=== PATIENT | male | born 1965 | race African-American/Black ===

== ENCOUNTER 2018-06-07 09:51 | Inpatient (IN) | payer OTHER ==
[2018-06-07 10:28] VITALS: BMI 29.8
--- NOTE | 2018-06-07 11:31 | HP ---
CIWA Score Nausea/Vomitin-No Nausea/No Vomiting Muscle Tremors: None Anxiety: 4-Mod. Anxious/Guarded Agitation: 2 Paroxysmal Sweats: No Perspiration Orientation: 3-Disoriented Date>2 days Tacttile Disturbances: 3-Moderate Itch/Numb/Burn Auditory Disturbances: 0-None Visual Disturbances: 0-None Headache: 0-None Present CIWA-Ar Total Score: 12 - Admission Criteria [facility]AS[facility] Guidelines: Admission for Medically Managed Detox: Requires at least one of the followin. CIWA greater than 12 2. Seizures within the past 24 hours 3. Delirium tremens within the past 24 hours 4. Hallucinations within the past 24 hours 5. Acute intervention needed for co occurring medical disorder 6. Acute intervention needed for co occurring psychiatric disorder 7. Severe withdrawal that cannot be handled at a lower level of care (continued vomiting, continued diarrhea, abnormal vital signs) requiring intravenous medication and/or fluids 8. Admission ROS [facility] Chief Complaint: ETOH WITHDRAWAL SX Allergies/Adverse Reactions: Allergies Allergy/AdvReac Type Severity Reaction Status Date / Time No Known Allergies Allergy Verified 06/07/18 10:54 History of Present Illness: THIS IS PATIENTS FIRST ADMISSION TO DETOX FOR ETOH WITHDRAWAL SX. PATIENT STARTED DRINKING AT AGE 11. PATIENTS DRINKS 1 LITRE OF VODKA DAILY. LAST DRINK WAS EARLY THIS MORNING. PATIENT HAS HX OF BINGE DRINKING. DENIES FALLS, SEIZURES AND BLACKOUTS. PATIENT DENIES USE OF OTHER SUBSTANCES. PATIENT HAS PMH OF DVT ON XARELTO (DX 5 YEARS AGO), TOBACCO USE AND HIV. PATIENT COMPLIANT WITH TRIUMEQ AND HAS OWN MEDICATION. PATIENT DENIES SI/HI AND SUICIDE ATTEMPTS. Exam Limitations: No Limitations - Ebola screening Have you traveled outside of the country in the last 21 days: No Have you had contact with anyone from an Ebola affected area: No Have you been sick,other than usual withdrawal symptoms: No Do you have a fever: No - Review of Systems Constitutional: Weight Stable EENT: reports: No Symptoms Reported Respiratory: reports: No Symptoms reported Cardiac: reports: No Symptoms Reported GI: reports: Poor Fluid Intake : reports: Other (DARK URINE) Integumentary: reports: No Symptoms Reported Neuro: reports: Headache, Numbness, Tingling, Tremors Endocrine: reports: No Symptoms Reported Hematology: reports: No Symptoms Reported Psychiatric: reports: Mood/Affect Appropiate, other (FORGETFUL WITH DATE, ORIENTED TO MONTH AND YEAR.) Patient History - Patient Medical History Hx Anemia: No Hx Asthma: No Hx Chronic Obstructive Pulmonary Disease (COPD): No Hx Cancer: No Hx Cardiac Disorders: No Hx Congestive Heart Failure: No Hx Hypertension: No Hx Hypercholesterolemia: No Hx Pacemaker: No HX Cerebrovascular Accident: No Hx Seizures: No Hx Dementia: No Hx Diabetes: No Hx Gastrointestinal Disorders: No Hx Liver Disease: No Hx Genitourinary Disorders: No Hx Sexually Transmitted Disorders: No Hx Renal Disease (ESRD): No Hx Thyroid Disease: No Hx Human Immunodeficiency Virus (HIV): Yes (COMPLIANT WITH MEDS) Hx Hepatitis C: No Hx Depression: No Hx Suicide Attempt: No Hx Bipolar Disorder: No Hx Schizophrenia: No - Patient Surgical History Past Surgical History: Yes Hx Orthopedic Surgery: Yes (bilateral knee sx) Other Surgical History: bilateral hernia sx Anesthesia Reaction: No - PPD History Previous Implant?: Yes Documented Results: Negative w/o proof Implanted On Prior [facility] Admission?: No PPD to be Administered?: Yes - Smoking Cessation Smoking history: Current every day smoker Have you smoked in the past 12 months: Yes Aproximately how many cigarettes per day: 20 Hx Chewing Tobacco Use: No Initiated information on smoking cessation: Yes 'Breaking Loose' booklet given: 06/07/18 - Substance & Tx. History Hx Alcohol Use: Yes Hx Substance Use: No Substance Use Type: Alcohol Hx Substance Use Treatment: No - Substances Abused Alcohol Route: Oral Frequency: Daily Amount used: 1 liter vodka Age of first use: 12 Date of Last Use: 06/07/18 Family Disease History - Family Disease History Family History: Denies Admission Physical Exam [facility] - Vital Signs Vital Signs: Vital Signs - 24 hr 06/07/18 10:26 Temperature 97.6 F Pulse Rate 80 Respiratory 18 Rate Blood Pressure 141/78 - Physical General Appearance: Yes: Nourished, Appropriately Dressed, Intoxicated, Tremorous HEENTM: Yes: EOMI, Hearing grossly Normal, Normal ENT Inspection, Normocephalic , Normal Voice, MAXINE, Pharynx Normal Respiratory: Yes: Chest Non-Tender, Lungs Clear, Normal Breath Sounds, No Respiratory Distress, No Accessory Muscle Use Neck: Yes: No masses,lesions,Nodules, Supple, Trachea in good position Breast: Yes: Breast Exam Deferred Cardiology: Yes: Regular Rhythm, Regular Rate, S1, S2 Abdominal: Yes: Normal Bowel Sounds, Non Tender, Soft Genitourinary: Yes: Within Normal Limits Back: Yes: Within Normal Limits Musculoskeletal: Yes: full range of Motion, Gait Steady Extremities: Yes: Normal Inspection, Normal Range of Motion, Non-Tender, Swelling (RLE 1+ EDEMA, LLE +TRACE EDEMA) Neurological: Yes: hand embroiderer II-XII NML intact, Alert, Normal Mood/Affect, Normal Response, Disoriented (TO DATE ONLY) Integumentary: Yes: Normal Color, Dry, Warm Lymphatic: Yes: Within Normal Limits - Diagnostic (1) Alcohol dependence with uncomplicated withdrawal Current Visit: Yes Status: Acute (2) Chronic deep vein thrombosis (DVT) Current Visit: Yes Status: Chronic Qualifiers: DVT location: lower extremity Laterality: right (3) HIV positive Current Visit: Yes Status: Chronic Cleared for Admission [facility] - Detox or Rehab [facility] Level of Care: Medically Managed Detox Regimen/Protocol: Librium [facility] Breath Alcohol Content Breath Alcohol Content: 0.240 Urine Drug Screen - Results Drug Screen Negative: Yes
[2018-06-07] MEDS ORDERED: MAG HYDROX/AL HYDROX/SIMETH 30 ML UNIT-DOSE CUP PO PRN (11:42)
[2018-06-07] MEDS ORDERED: hydrOXYzine PAMOATE 50 MG CAPSULE (FP) PO PRN (11:42)
[2018-06-07] MEDS ORDERED: IBUPROFEN 400 MG TABLET (FP) PO PRN (11:42)
[2018-06-07] MEDS ORDERED: P-EPHED 60MG/TRIPROLIDI 2.5MG TABLET PO PRN (11:42)
[2018-06-07] MEDS ORDERED: ACETAMINOPHEN 325 MG TABLET (FP) PO PRN (11:42)
[2018-06-07] MEDS ORDERED: MENTHOL/PHENOL 1 EACH UD MM PRN (11:42)
[2018-06-07] MEDS ORDERED: MAGNESIUM CITRATE 300 ML BOTTLE PO PRN (11:42)
[2018-06-07] MEDS ORDERED: guaiFENesin/D-METHORPHAN HB 10 ML UNIT-DOSE CUPS PO PRN (11:42)
[2018-06-07] MEDS ORDERED: LOPERAMIDE HCL 2 MG CAPSULE PO PRN (11:42)
[2018-06-07] MEDS ORDERED: NICOTINE POLACRILEX 2 MG GUM BUC PRN (11:42)
[2018-06-07] MEDS ORDERED: MAGNESIUM HYDROX 2400MG/30ML ORAL SUSPENSION 30 ML CUP PO PRN (11:42)
[2018-06-07] MEDS ORDERED: chlordiazePOXIDE HCL 25 MG CAPSULE PO PRN (14:57)
[2018-06-07] MEDS ORDERED: NICOTINE 21 MG/24 HOURS TOPICAL PATCH TD SCH (15:30)
[2018-06-07] MEDS ORDERED: chlordiazePOXIDE HCL 25 MG CAPSULE PO ONE (15:30)
--- NOTE | 2018-06-07 15:52 | EKG ---
Test Reason : Blood Pressure : / mmHG Vent. Rate : 085 BPM Atrial Rate : 085 BPM P-R Int : 140 ms QRS Dur : 108 ms QT Int : 402 ms P-R-T Axes : 068 -01 052 degrees QTc Int : 478 ms NORMAL SINUS RHYTHM NONSPECIFIC T WAVE ABNORMALITY PROLONGED QT ABNORMAL ECG NO PREVIOUS ECGS AVAILABLE Confirmed by HANK TINOCO MD ([id number]) on 06/07/2018 3:52:31 PM Referred By: Confirmed By:HANK TINOCO MD
[2018-06-07 18:25] VITALS: TEMP 98.1
[2018-06-07 19:00] LABS: URINE APPEARANCE CLEAR; URINE BILIRUBIN NEGATIVE (<2.0 mg/dL); URINE COLOR AMBER; URINE GLUCOSE (UA) NEGATIVE (NEGATIVE); URINE KETONE NEGATIVE (NEGATIVE); URINE LEUK ESTERASE NEGATIVE (NEGATIVE); URINE NITRITE NEGATIVE (NEGATIVE); URINE PROTEIN 1+ (NEGATIVE); URINE UROBILINOGEN 4.0 E.U/dl mg/dL (0.2-1.0)
[2018-06-07] MEDS ORDERED: RIVAROXABAN 20 MG TABLET PO ONE (19:14)
[2018-06-07 19:17] LABS: CALCIUM OXALATE CRYSTALS RARE /hpf (NONE SEEN); EPI CELLS RARE /HPF (FEW); URINE MUCUS RARE
[2018-06-07] MEDS ORDERED: MELATONIN 5 MG TABLETS PO PRN (22:00)
[2018-06-07] MEDS ORDERED: THIAMINE HCL 100 MG TABLET (FP) PO SCH (22:00)
[2018-06-07 22:01] VITALS: BP 148/72; PULSE 94
[2018-06-07] MEDS: chlordiazePOXIDE HCL 25 MG CAPSULE PO SCH (22:10)
--- NOTE | 2018-06-07 22:35 | PN ---
[facility] Progress Note (SOAP) Subjective: C/o increased (R) leg calf pain and swelling of leg since admission. States hx of blood clots and currently prescribed Xarelto. Denies chest pain or SOB. Objective: Increased swelling and warmth of (R) calf. Thickened, darkened trophic changes of skin noted. (+) Claudine's. Pedal pulses present. Vital Signs 06/07/18 06/07/18 06/07/18 15:00 15:30 16:01 Temperature Pulse Rate 98 H 99 H 99 H Respiratory Rate Blood Pressure 06/07/18 06/07/18 06/07/18 16:30 18:24 22:00 Temperature 98.1 F 98.1 F Pulse Rate 96 H 101 H 94 H Respiratory 20 18 20 Rate Blood Pressure 126/84 148/72 Laboratory Last Values Urine Color Sarina 06/07/18 15:56 Urine Appearance Clear 06/07/18 15:56 Urine pH 5.0 (5.0-8.0) 06/07/18 15:56 Ur Specific [place] 1.029 (1.010-1.035) 06/07/18 15:56 Urine Protein 1+ (NEGATIVE) H 06/07/18 15:56 Urine Glucose (UA) Negative (NEGATIVE) 06/07/18 15:56 Urine Ketones Negative (NEGATIVE) 06/07/18 15:56 Urine Blood Negative (NEGATIVE) 06/07/18 15:56 Urine Nitrite Negative (NEGATIVE) 06/07/18 15:56 Urine Bilirubin Negative (<2.0 mg/dL) 06/07/18 15:56 Urine Urobilinogen 4.0 e.u/dl mg/dL (0.2-1.0) 06/07/18 15:56 Ur Leukocyte Esterase Negative (NEGATIVE) 06/07/18 15:56 Urine WBC (Auto) 3 /hpf (3-5) 06/07/18 15:56 Urine RBC (Auto) 3 /hpf (0-3) 06/07/18 15:56 Ur Epithelial Cells Rare /HPF (FEW) 06/07/18 15:56 Calcium Oxalate Crystal Rare /hpf (NONE SEEN) 06/07/18 15:56 Urine Mucus Rare 06/07/18 15:56 Assessment: Hx: Chronic DVT (R) leg Alcohol withdrawal HIV (+) Nicotine use disorder Plan: Refer to [facility] for evaluation new onset calf pain and edema via ambulance. Report given to Edwin Trammell @ ED.
[2018-06-08] MEDS: chlordiazePOXIDE HCL 25 MG CAPSULE PO SCH (05:53)
[2018-06-08] MEDS ORDERED: ABACAVIR/DOLUTEGRAVIR/LAMIVUDI (TRIUMEQ) TABLET -NF PO SCH (08:00)
[2018-06-08] MEDS ORDERED: RIVAROXABAN 20 MG TABLET PO SCH (10:00)
[2018-06-08] MEDS ORDERED: NICOTINE 21 MG/24 HOURS TOPICAL PATCH TD SCH (10:00)
[2018-06-08] MEDS ORDERED: PRENATAL VITAMINS W/ FOLIC ACID TABLET (FP) PO SCH (10:00)
[2018-06-08] MEDS ORDERED: amLODIPine BESYLATE 10 MG TABLET (FP) PO SCH (10:00)
[2018-06-08 10:18] LABS: HEMATOCRIT 43.9 % (35.4-49); HEMOGLOBIN 15.6 GM/dL (11.7-16.9); MCH 37.1 pg (25.7-33.7); MCHC 35.5 g/dl (32.0-35.9); MEAN CELL VOLUME 104.6 fl (80-96); MEAN PLT VOLUME 9.7 fl (7.5-11.1); PLATELET COUNT 289 K/MM3 (134-434); RDW 13.5 % (11.9-15.9); WHITE BLOOD COUNT 5.5 K/mm3 (4.0-10.0)
[2018-06-08 10:37] LABS: ALBUMIN 3.1 g/dl (3.4-5.0); ALK PHOS 107 U/L (45-117); ANION GAP 11 MMOL/L (8-16); BILIRUBIN,TOTAL 0.3 mg/dL (0.2-1); BLOOD UREA NITROGEN 9 mg/dL (7-18); CHLORIDE 107 mmol/L (98-107); CO2 25 mmol/L (21-32); CREATININE 0.9 mg/dL (0.55-1.3); GLUCOSE,RANDOM 140 mg/dL (74-106); POTASSIUM 3.4 mmol/L (3.5-5.1); SGOT/AST 64 U/L (15-37); SGPT/ALT 50 U/L (13-61); SODIUM 143 mmol/L (136-145); TOT PROT 6.9 g/dl (6.4-8.2)
[2018-06-08] MEDS ORDERED: FLU VACCINE QUAD 60 MCG/0.5 ML (MDV 18-19) IM ONE (12:00)
[2018-06-08] MEDS ORDERED: chlordiazePOXIDE HCL 25 MG CAPSULE PO SCH (23:00)
[2018-06-09] MEDS ORDERED: chlordiazePOXIDE 5 MG CAPSULE PO SCH (23:00)
[2018-06-10] MEDS ORDERED: chlordiazePOXIDE HCL 10 MG CAPSULE PO SCH (23:00)
== END 2018-06-08 08:00 | disposition short-term general hospital (02) | DRG 775 ==
LOC: YASAS 09:51 → Y6N 12:23
PROVIDERS: ADMIT Neuromusculoskeletal Medicine & OMM; ATTEND Neuromusculoskeletal Medicine & OMM
PROC: HZ2ZZZZ Detoxification Services for Substance Abuse Treatment (ICD-10-PCS; principal; 2018-06-07)
DX: F10.230 Alcohol dependence with withdrawal, uncomplicated (principal); F17.210 Nicotine dependence, cigarettes, uncomplicated; Z21 Asymptomatic human immunodeficiency virus [HIV] infection status; I82.519 Chronic embolism and thrombosis of unspecified femoral vein; M79.661 Pain in right lower leg; Z79.01 Long term (current) use of anticoagulants
CPT/HCPCS: 36415; 80053; 81003; 81015; 85027; 86593; 93005; 93010

== ENCOUNTER 2018-06-07 23:42 | Inpatient (IN) | payer OTHER ==
--- NOTE | 2018-06-08 01:41 | PDOC ---
History of Present Illness - General Stated Complaint: BLOOD CLOT Time Seen by Provider: 06/08/18 01:08 History Source: Patient Exam Limitations: No Limitations - History of Present Illness Initial Comments: 06/08/18 01:38 HISTORY OF PRESENT ILLNESS: This is a 52-year-old male with past medical history of HIV (VL-undetectable, CD4-400), PE and DVT currently on Xarelto who was sent from to [facility] for evaluation of right lower extremity swelling which is worsened over the past 2 days. Patient states he takes his is a also as prescribed but has not had any surveillance ultrasounds done in the past 4 years. Patient currently with right calf pain and swelling. Denies fevers, chills, recent travel, surgeries medication noncompliance. No recent travel or sick contacts. PAST MEDICAL HISTORY: see HPI SURGICAL HISTORY: Denies ALLERGIES: No known drug allergies REVIEW OF SYSTEMS General/Constitutional: Denies fever or chills. Denies weakness, weight change. HEENT: Denies change in vision. Denies ear pain or discharge. Denies sore throat. Cardiovascular: Denies chest pain or shortness of breath. Respiratory: Denies cough, wheezing, or hemoptysis. Gastrointestinal: Denies nausea, vomiting, diarrhea or constipation. Denies rectal bleeding. Genitourinary: Denies dysuria, frequency, or change in urination. Musculoskeletal: Right calf swelling and pain. Denies neck or back pain. Skin and breasts: Denies rash or easy bruising. Neurologic: Denies headache, vertigo, loss of consciousness, or loss of sensation. Psychiatric: Denies depression or anxiety. Endocrine: Denies increased thirst. Denies abnormal weight change. Hematologic/Lymphatic: Denies anemia, easy bleeding, or history of blood clots. Allergic/Immunologic: Denies hives or skin allergy. Denies latex allergy. PHYSICAL EXAM General Appearance: Well-appearing, appropriately dressed. No apparent distress , no intoxication. HEENT: EOMI, PERRLA, normal ENT inspection, normal voice, TMs normal, pharynx normal. No conjunctival pallor. No photophobia, scleral icterus. Neck: Supple. Trachea midline. No tenderness, rigidity, carotid bruit, stridor , lymphadenopathy, or thyromegaly. Respiratory/Chest: Lungs CTAB. No shortness of breath, chest tenderness, respiratory distress, accessory muscle use. No crackles, rales, rhonchi, stridor , wheezing, dullness Cardiovascular: RRR. S1, S2. No JVD, murmur, bradycardia, tachycardia. Vascular Pulses: Dorsalis-Pedis (R): 2+, Dorsalis-Pedis (L): 2+ Gastrointestinal/Abdominal: Normal bowel sounds. Abdomen soft, non-distended. No tenderness or rebound tenderness. No organomegaly, pulsatile mass, guarding, hernia, hepatomegaly, splenomegaly. Lymphatic: No adenopathy, tenderness. Musculoskeletal/Extremities: Right lower extremity swollen and tender to palpation over the calf. Skin is warm to touch and temperature similar to left leg. Darkening of the skin is present to mid calf extending to the ankle. No erythema present. (+)Claudine's Integumentary: Appropriate color, dry, warm. No cyanosis, erythema, jaundice or rash Neurologic: cable television access coordinator II-XII intact. Fully oriented, alert. Appropriate mood/affect. Motor strength 5/5. No appreciable EOM palsy, facial droop or sensory deficit. Past History - Past Medical History Allergies/Adverse Reactions: Allergies Allergy/AdvReac Type Severity Reaction Status Date / Time No Known Allergies Allergy Verified 06/08/18 01:28 Home Medications: Ambulatory Orders Abacavir/Dolutegravir/Lamivudi [Triumeq Tablet] 1 each PO DAILY 06/07/18 Amlodipine Besylate [Norvasc -] 10 mg PO DAILY 06/07/18 Rivaroxaban [Xarelto -] 20 mg PO DAILY 06/07/18 Vitamin B Complex [B Complex] 1 each PO DAILY 06/07/18 Anemia: No Asthma: No Cancer: No Cardiac Disorders: No CVA: No COPD: No CHF: No Dementia: No Diabetes: No GI Disorders: No Disorders: No HTN: No Hypercholesterolemia: No Kidney Stones: No Liver Disease: No Seizures: No Thyroid Disease: No - Surgical History Orthopedic Surgery: Yes (bilateral knee sx) - Reproductive History Testicular Surgery: No - Suicide/Smoking/Psychosocial Hx Smoking History: Never smoked Have you smoked in the past 12 months: No Number of Cigarettes Smoked Daily: 20 Information on smoking cessation initiated: No 'Breaking Loose' booklet given: 06/07/18 Hx Alcohol Use: No Drug/Substance Use Hx: No Substance Use Type: Alcohol Hx Substance Use Treatment: No *Physical Exam - Vital Signs Last Vital Signs Temp Pulse Resp BP Pulse Ox 97.8 F 82 16 138/91 96 06/07/18 23:42 06/07/18 23:42 06/07/18 23:42 06/07/18 23:42 06/07/18 23:42 Moderate Sedation - Procedure Monitoring Vital Signs: Procedure Monitoring Vital Signs Temperature 97.8 F 06/07/18 23:42 Pulse Rate 82 06/07/18 23:42 Respiratory Rate 16 06/07/18 23:42 Blood Pressure 138/91 06/07/18 23:42 O2 Sat by Pulse Oximetry (%) 96 06/07/18 23:42 ED Treatment Course - LABORATORY CBC & Chemistry Diagram: 06/08/18 02:59 06/08/18 02:59 - RADIOLOGY Radiology Studies Ordered: Category Date Time Status DUPLEX VASCUL US-1 LEG [US] Stat Ultrasound 06/08/18 01:11 Ordered Medical Decision Making - Medical Decision Making 06/08/18 01:44 A/P: 52-year-old male with tenderness, swelling to right lower extremity Duplex Dopplers to rule out DVT Disposition pending results 06/08/18 01:59 Ultrasound as read by imaging superintendent institution: Nonocclusive thrombus within the right popliteal vein and right posterior tibial vein. Collect labs including stool for occult blood. Start heparin drip. Admit to hospitalist. *DC/Admit/Observation/Transfer Diagnosis at time of Disposition: DVT of lower extremity (deep venous thrombosis) Qualifiers: Affected thrombotic vein of extremity: popliteal Chronicity: acute Laterality: right Qualified Code(s): I82.431 - Acute embolism and thrombosis of right popliteal vein - Discharge Dispostion Condition at time of disposition: Fair Decision to Admit order: Yes - Referrals Referrals: Hamida Vargas DO [Primary Care Provider] - - Patient Instructions - Post Discharge Activity
[2018-06-08] MEDS ORDERED: HEPARIN NA (PORCINE) 5,000 UNITS/ML 1ML VIAL IVPUSH PRN ×2 (01:57)
[2018-06-08] MEDS ORDERED: HEPARIN INFUSION - 25,000 UNITS/500 ML INFUS.BAG IVPB ONE (02:08)
[2018-06-08 03:27] LABS: BASO % 0.6 % (0-2.0); EOS % 2.9 % (0-4.5); HEMATOCRIT 43.1 % (35.4-49); HEMOGLOBIN 15.3 GM/dL (11.7-16.9); LYMPH % 24.1 % (8-40); MCH 35.9 pg (25.7-33.7); MCHC 35.4 g/dl (32.0-35.9); MEAN CELL VOLUME 101.3 fl (80-96); MEAN PLT VOLUME 8.7 fl (7.5-11.1); MONO % 8.2 % (3.8-10.2); NEUT % 64.2 % (42.8-82.8); PLATELET COUNT 250 K/MM3 (134-434); RBC 4.25 M/mm3 (4.00-5.60); RDW 13.1 % (11.9-15.9); WHITE BLOOD COUNT 6.7 K/mm3 (4.0-10.0)
[2018-06-08] MEDS ORDERED: chlordiazePOXIDE HCL 25 MG CAPSULE PO ONE (03:27)
[2018-06-08 03:40] LABS: INR 1.37 (0.83-1.09); PROTHROMBIN TIME (PATIENT) 16.2 SEC (9.7-13.0)
[2018-06-08 03:43] LABS: ALBUMIN 3.3 g/dl (3.4-5.0); ALK PHOS 110 U/L (45-117); ANION GAP 6 MMOL/L (8-16); BILIRUBIN,TOTAL 0.5 mg/dL (0.2-1); BLOOD UREA NITROGEN 13 mg/dL (7-18); CALCIUM 8.6 mg/dL (8.5-10.1); CHLORIDE 101 mmol/L (98-107); CO2 30 mmol/L (21-32); CREATININE 0.9 mg/dL (0.55-1.3); GLUCOSE,RANDOM 124 mg/dL (74-106); POTASSIUM 3.7 mmol/L (3.5-5.1); SGOT/AST 42 U/L (15-37); SGPT/ALT 46 U/L (13-61); SODIUM 136 mmol/L (136-145); TOT PROT 7.1 g/dl (6.4-8.2)
[2018-06-08] MEDS ORDERED: chlordiazePOXIDE HCL 25 MG CAPSULE ONE ×2 (04:02→22:24)
[2018-06-08] MEDS: HEPARIN - 25,000 UNIT in SODIUM CHLORIDE 495 ML IV SCH (04:15)
--- NOTE | 2018-06-08 04:19 | HP ---
CHIEF COMPLAINT: RLE pain and swelling PCP: HISTORY OF PRESENT ILLNESS: 52 y/o male with PMH of HIV on HAART ( last viral load undetectable; last CD[facility] count 400[facility] HTN, PE 5 years ago (on xarelto) presented to the ED from [facility] with complaint of RLE pain/swelling/ tenderness for the past 2 days. Patient went to [facility] for alcohol detox where he began to have RLE pain/swelling, especially in his calf. Patient has not recently traveled anywhere nor has he had any recent surgeries. Of note he has had about 5-6 orthopedic surgeries in the past, however, none have been recent. When he was diagnosed with the PE about 6 years ago, he was first started on Lovenox, then put on coumadin, however, the coumadin interacted with his HIV meds so he has currently been on xarelto for the past 2 years. Unclear if any hypercoagulable workup was done in the past. He denies any fevers, chills , nausea or vomiting. ER course was notable for: (1) DVT found in R popliteal vein and R posterior tibial vein (2)started patient on heparin drip (3)librium protocol for withdrawal Recent Travel: none PAST MEDICAL HISTORY: see above PAST SURGICAL HISTORY: multiple orthopedic surgeries; last one being about a year shoaib Social History: Smokinppd smoker since age 11 Alcohol:drinks 1/5th of vodka everyday- last drink being 2 days ago; never been hospitalized for DT's or any other withdrawal symptoma Drugs: casual marijuana smoker Family History: aunt of PE; father and sister have diabetes Allergies No Known Allergies Allergy (Verified 06/08/18 01:28) HOME MEDICATIONS: Home Medications Medication Instructions Recorded Abacavir/Dolutegravir/Lamivudi 1 each PO DAILY 06/07/18 [Triumeq Tablet] Amlodipine Besylate [Norvasc -] 10 mg PO DAILY 06/07/18 Rivaroxaban [Xarelto -] 20 mg PO DAILY 06/07/18 Vitamin B Complex [B Complex] 1 each PO DAILY 06/07/18 REVIEW OF SYSTEMS CONSTITUTIONAL: Absent: fever, chills, diaphoresis, generalized weakness, malaise, loss of appetite, weight change HEENT: Absent: rhinorrhea, nasal congestion, throat pain, throat swelling, difficulty swallowing, mouth swelling, ear pain, eye pain, visual changes CARDIOVASCULAR: Absent: chest pain, syncope, palpitations, irregular heart rate, lightheadedness , peripheral edema RESPIRATORY: Absent: cough, shortness of breath, dyspnea with exertion, orthopnea, wheezing, stridor, hemoptysis GASTROINTESTINAL: Absent: abdominal pain, abdominal distension, nausea, vomiting, diarrhea, constipation, melena, hematochezia GENITOURINARY: Absent: dysuria, frequency, urgency, hesitancy, hematuria, flank pain, genital pain MUSCULOSKELETAL: Present: right lower extremity pain and swelling. Absent: myalgia, arthralgia, back pain, neck pain SKIN: Absent: rash, itching, pallor HEMATOLOGIC/IMMUNOLOGIC: Absent: easy bleeding, easy bruising, lymphadenopathy, frequent infections ENDOCRINE: Absent: unexplained weight gain, unexplained weight loss, heat intolerance, cold intolerance NEUROLOGIC: Absent: headache, focal weakness or paresthesias, dizziness, unsteady gait, seizure, mental status changes, bladder or bowel incontinence PSYCHIATRIC: Absent: anxiety, depression, suicidal or homicidal ideation, hallucinations. PHYSICAL EXAMINATION Vital Signs - 24 hr 06/07/18 06/08/18 23:42 03:19 Temperature 97.8 F 98.2 F Pulse Rate 82 Pulse Rate [ 83 Apical] Respiratory 16 18 Rate Blood Pressure 138/91 Blood Pressure 135/92 [Left] O2 Sat by Pulse 96 97 Oximetry (%) GENERAL: Awake, alert, and fully oriented, in no acute distress.. EYES:EOMI' no scleral icterus. EARS, NOSE, THROAT: slight tongue fasiculations. NECK: no JVD, no lymphadenopathy. LUNGS: CTA B/L; no rales, rhonchi or wheezing HEART: Regular rate and rhythm, normal S1 and S2 without murmur, rub or gallop. ABDOMEN: Soft, nontender, not distended, normoactive bowel sounds, no guarding, no rebound, no masses. No hepatomegaly or splenomegaly. MUSCULOSKELETAL: Normal range of motion at all joints. No bony deformities or tenderness. No CVA tenderness. EXTREMITIES: right lower extremity:skin changes; tight upon touch; warm and tender upon palpation with associated swelling; + Homans sign NEUROLOGICAL: Cranial nerves II-XII intact. Normal speech. Normal gait. SKIN: Warm, dry, normal turgor, no rashes or lesions noted, normal capillary refill. Laboratory Results - last 24 hr 06/08/18 06/08/18 06/08/18 02:16 02:59 02:59 WBC 6.7 RBC 4.25 Hgb 15.3 Hct 43.1 MCV 101.3 H MCH 35.9 H MCHC 35.4 RDW 13.1 Plt Count 250 MPV 8.7 Absolute Neuts (auto) 4.3 Neutrophils % 64.2 Lymphocytes % 24.1 Monocytes % 8.2 Eosinophils % 2.9 Basophils % 0.6 Nucleated RBC % 0 PT with INR 16.20 H INR 1.37 H Sodium Potassium Chloride Carbon Dioxide Anion Gap BUN Creatinine Creat Clearance w eGFR Random Glucose Calcium Total Bilirubin AST ALT Alkaline Phosphatase Total Protein Albumin Stool Occult Blood Negative 06/08/18 02:59 WBC RBC Hgb Hct MCV MCH MCHC RDW Plt Count MPV Absolute Neuts (auto) Neutrophils % Lymphocytes % Monocytes % Eosinophils % Basophils % Nucleated RBC % PT with INR INR Sodium 136 Potassium 3.7 Chloride 101 Carbon Dioxide 30 Anion Gap 6 L BUN 13 Creatinine 0.9 Creat Clearance w eGFR > 60 Random Glucose 124 H Calcium 8.6 Total Bilirubin 0.5 AST 42 H ALT 46 Alkaline Phosphatase 110 Total Protein 7.1 Albumin 3.3 L Stool Occult Blood ASSESSMENT/PLAN: 52 y/o male with PMH of HIV (on HAART), PE, HTN, presents to the ED from [facility] with RLE pain/swelling/tenderness found to have a DVT in the right popliteal and right posterior tibial veins. #DVT patient was on currently on xarelto for the past 2-3 years -patient started on Heparin drip -Heme consulted -Vascular consulted for possible IVC filter given history -monitor CBC and signs of bleeding #HIV last viral load undetectable; last CD4 400 patient [facility] #Alcohol Use -c/w librium protocol -thiamine and folate -monitor CIWA and signs of withdrawal #HTN -c/w norvasc DVT PPX: heparin drip F/E/N NS@75mls/hr monitor electrolytes regular diet Problem List - Problem (1) Alcohol dependence with uncomplicated withdrawal Code(s): F10.230 - ALCOHOL DEPENDENCE WITH WITHDRAWAL, UNCOMPLICATED (2) DVT of lower extremity (deep venous thrombosis) Code(s): I82.409 - ACUTE EMBOLISM AND THOMBOS UNSP DEEP VN UNSP LOWER EXTREMITY Qualifiers: Affected thrombotic vein of extremity: popliteal Chronicity: acute Laterality: right Qualified Code(s): I82.431 - Acute embolism and thrombosis of right popliteal vein (3) HIV positive Code(s): Z21 - ASYMPTOMATIC HUMAN IMMUNODEFICIENCY VIRUS INFECTION STATUS Visit type - Emergency Visit Emergency Visit: Yes ED Registration Date: 06/08/18 Care time: The patient presented to the Emergency Department on the above date and was hospitalized for further evaluation of their emergent condition. - New Patient This patient is new to me today: Yes Date on this admission: 06/08/18 - Critical Care Critical Care patient: No
--- NOTE | 2018-06-08 04:43 | PN ---
Teaching Attending Note Name of Resident: Cristine Michelle ATTENDING PHYSICIAN STATEMENT I saw and evaluated the patient. I reviewed the resident's note and discussed the case with the resident. I agree with the resident's findings and plan as documented. SUBJECTIVE: This is a 52 year old man with a history of HIV, HTN, PE, who was sent to the ED from [facility] because of pain and swelling of his right leg x 2 days. He denies recent trips, trauma, or immobilization. He says he had a PE about 6 years ago after surgery. He was treated initially with Lovenox and changed to Coumadin, which, because of medication interactions, was later changed to Xarelto. He has been on anticoagulation continuously since the PE. OBJECTIVE: Vital Signs Period Temp Pulse Resp BP Sys/Mccray Pulse Ox Last 24 Hr 97.8 F-98.2 F 82-83 16-18 135-138/91-92 96-97 HEART: S1S2, RRR LUNGS: Clear ABDOMEN: Soft, non-tender, non-distended, normal BS EXTREMITIES: Right leg swollen with calf tenderness Laboratory Tests 06/08/18 06/08/18 06/08/18 02:16 02:59 02:59 WBC 6.7 RBC 4.25 Hgb 15.3 Hct 43.1 MCV 101.3 H MCH 35.9 H MCHC 35.4 RDW 13.1 Plt Count 250 MPV 8.7 Absolute Neuts (auto) 4.3 Neutrophils % 64.2 Lymphocytes % 24.1 Monocytes % 8.2 Eosinophils % 2.9 Basophils % 0.6 Nucleated RBC % 0 PT with INR 16.20 H INR 1.37 H Sodium Potassium Chloride Carbon Dioxide Anion Gap BUN Creatinine Creat Clearance w eGFR Random Glucose Calcium Total Bilirubin AST ALT Alkaline Phosphatase Total Protein Albumin Stool Occult Blood Negative 06/08/18 02:59 WBC RBC Hgb Hct MCV MCH MCHC RDW Plt Count MPV Absolute Neuts (auto) Neutrophils % Lymphocytes % Monocytes % Eosinophils % Basophils % Nucleated RBC % PT with INR INR Sodium 136 Potassium 3.7 Chloride 101 Carbon Dioxide 30 Anion Gap 6 L BUN 13 Creatinine 0.9 Creat Clearance w eGFR > 60 Random Glucose 124 H Calcium 8.6 Total Bilirubin 0.5 AST 42 H ALT 46 Alkaline Phosphatase 110 Total Protein 7.1 Albumin 3.3 L Stool Occult Blood Home Medications Medication Instructions Recorded Abacavir/Dolutegravir/Lamivudi 1 each PO DAILY 06/07/18 [Triumeq Tablet] Amlodipine Besylate [Norvasc -] 10 mg PO DAILY 06/07/18 Rivaroxaban [Xarelto -] 20 mg PO DAILY 06/07/18 Vitamin B Complex [B Complex] 1 each PO DAILY 06/07/18 ASSESSMENT AND PLAN: This is a 52 year old man with a history of HIV, HTN, PE, who was presented to the ED from [facility] with pain and swelling of his right leg x 2 days. 1. DVT of right popliteal and posterior tibial veins - Patient has been taking Xarelto for provoked DVT (post-op) ~6 years ago - Heparin IV drip started in ED - Discontinue Xarelto - Hematology consult 2. HTN - Continue Norvasc 3. HIV - Continue Triumeq
[2018-06-08 06:19] LABS: MAGNESIUM 1.5 mg/dL (1.8-2.4); PHOSPHOROUS 3.7 mg/dL (2.5-4.9)
[2018-06-08 08:12] LABS: ALK PHOS 99 U/L (45-117); ANION GAP 10 MMOL/L (8-16); BILIRUBIN,TOTAL 0.4 mg/dL (0.2-1); BLOOD UREA NITROGEN 12 mg/dL (7-18); CHLORIDE 101 mmol/L (98-107); CO2 27 mmol/L (21-32); CREATININE 0.9 mg/dL (0.55-1.3); GLUCOSE,RANDOM 182 mg/dL (74-106); POTASSIUM 3.3 mmol/L (3.5-5.1); SGOT/AST 38 U/L (15-37); SGPT/ALT 42 U/L (13-61); SODIUM 138 mmol/L (136-145); TOT PROT 6.5 g/dl (6.4-8.2)
[2018-06-08] MEDS ORDERED: PATIENT'S OWN MEDICATION (NON-FORMULARY) (Abacavir/Dolutegravir/Lamivudi [Triumeq 600-50-3 PO SCH (10:00)
[2018-06-08] MEDS: ABACAVIR SULFATE 300 MG TABLET PO SCH (10:23)
[2018-06-08] MEDS: DOLUTEGRAVIR SODIUM 50 MG TABLET (NON-FORMULARY) PO SCH (10:23)
[2018-06-08] MEDS: amLODIPine BESYLATE 10 MG TABLET (FP) PO SCH (10:24)
--- NOTE | 2018-06-08 11:55 | EKG ---
Test Reason : Blood Pressure : / mmHG Vent. Rate : 067 BPM Atrial Rate : 067 BPM P-R Int : 152 ms QRS Dur : 102 ms QT Int : 450 ms P-R-T Axes : 056 -02 034 degrees QTc Int : 475 ms NORMAL SINUS RHYTHM NORMAL ECG WHEN COMPARED WITH ECG OF 07-JUN-2018 13:51, NO SIGNIFICANT CHANGE WAS FOUND Confirmed by MAR ROBERTS MD ([id number]) on 06/08/2018 11:55:04 AM Referred By: Confirmed By:MAR ROBERTS MD
--- NOTE | 2018-06-08 12:23 | CONSULT ---
Consult Consult Specialty:: Hemonc Referred by:: Dr. Minor Reason for Consultation:: Recurrent DVT - History of Present Illness History of Present Illness: 52 yo M h/o HIV on HAART, HTN, DVT and PE admitted to the hospital from alcohol detox due to finding of R LE DVT. Patient recalls being diagnosed with R leg DVT in 2011. He was started on coumadin but developed PE. He was then started on lovenox and switched to xarelto, for which he's been on for the last 3 years. He also c/o RLE color change and swelling. 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 His last travel history was new year that involved [address] from [place] to [place]. His aunt had PE. Denies shortness of breath , chest pain, n/v, fever, chills. - History Source History Provided By: Patient - Past Medical History Cardio/Vascular: Yes: HTN Pulmonary: Yes: Pulmonary Embolus (DVT) Infectious Disease: Yes: HIV - Alcohol/Substance Use Hx Alcohol Use: Yes - Smoking History Smoking history: Never smoked Have you smoked in the past 12 months: No Aproximately how many cigarettes per day: 20 (since age of 11) Home Medications - Allergies Allergies/Adverse Reactions: Allergies Allergy/AdvReac Type Severity Reaction Status Date / Time No Known Allergies Allergy Verified 06/08/18 01:28 - Home Medications Home Medications: Ambulatory Orders Abacavir/Dolutegravir/Lamivudi [Triumeq Tablet] 1 each PO DAILY 06/07/18 Amlodipine Besylate [Norvasc -] 10 mg PO DAILY 06/07/18 Rivaroxaban [Xarelto -] 20 mg PO DAILY 06/07/18 Vitamin B Complex [B Complex] 1 each PO DAILY 06/07/18 Review of Systems - Review of Systems Constitutional: denies: Chills, Fever Cardiovascular: denies: Chest Pain, Shortness of Breath Respiratory: denies: Wheezing Gastrointestinal: denies: Abdominal Pain, Diarrhea, Nausea, Vomiting Genitourinary: reports: No Symptoms Neurological: reports: No Symptoms Hematology/Lymphatic: denies: Easily Bruised, Excessive Bleeding, Swollen Glands Physical Exam Vital Signs: Vital Signs Temperature 97.8 F 06/08/18 12:11 Pulse Rate 79 06/08/18 12:11 Respiratory Rate 15 06/08/18 12:11 Blood Pressure 136/100 06/08/18 12:11 O2 Sat by Pulse Oximetry (%) 97 06/08/18 10:31 Constitutional: Yes: No Distress, Calm Eyes: Yes: Conjunctiva Clear, EOM Intact HENT: Yes: Normocephalic Cardiovascular: Yes: Regular Rate and Rhythm, S1, S2. No: Murmur Respiratory: Yes: CTA Bilaterally Gastrointestinal: Yes: Normal Bowel Sounds, Soft. No: Tenderness Edema: Yes Edema: RLE: Trace Peripheral Pulses WNL: Yes Integumentary: Yes: Venous Stasis Changes (RLE) Neurological: Yes: Alert, Oriented, Cran Nerves II-XII Intact Labs: CBC, BMP 06/08/18 02:59 06/08/18 05:30 Assessment/Plan 52 yo M h/o HIV on HAART, HTN, DVT and PE admitted to the hospital for finding of recurrent DVT. Recurrent DVT w/ h/o PE - Will order thrombophilia workup - recommend lovenox for AC - f/u as outpatient for lab results if discharged before results available - rest as primary team Oscar Zuñiga PGY3 Visit type - Emergency Visit Emergency Visit: Yes ED Registration Date: 06/08/18 Care time: The patient presented to the Emergency Department on the above date and was hospitalized for further evaluation of their emergent condition. - New Patient This patient is new to me today: Yes Date on this admission: 06/08/18 - Critical Care Critical Care patient: No
--- NOTE | 2018-06-08 16:14 | CONSULT ---
- Consultation REQUESTING PROVIDER: CONSULT REQUEST: We have been asked to surgically evaluate this patient for RLE DVT. PCP:Sarbjit Pryor MD HISTORY OF PRESENT ILLNESS: The patient is a 52 yo male with a history of PE and Right lower ext DVT many years ago. At that time, he was treated with lovenox for 7 months. Three years ago, he developed another DVT to his right lower extremity and was treated with coumadin and then changed to xarelto(20mg per day). He has been taking his xarelto daily. While in rehab for alcohol and smoking cessation he developed acute RLE leg pain. Today he had a vascular study that was positive for a RLE DVT. He denies any SOB, CP. He denies any chronic swelling to his RLE on a daily basis except for the times he had a DVT. He is unsure of he ever had a hematology work up. He had an aunt who of a DVT/PE. PMHx: PE, recurrent DVT to RLE Home Medications Medication Instructions Recorded Abacavir/Dolutegravir/Lamivudi 1 each PO DAILY 06/07/18 [Triumeq Tablet] Amlodipine Besylate [Norvasc -] 10 mg PO DAILY 06/07/18 Rivaroxaban [Xarelto -] 20 mg PO DAILY 06/07/18 Vitamin B Complex [B Complex] 1 each PO DAILY 06/07/18 Allergies Allergy/AdvReac Type Severity Reaction Status Date / Time No Known Allergies Allergy Verified 06/08/18 01:28 REVIEW OF SYSTEMS: CARDIOVASCULAR: Absent: chest pain, syncope, palpitations RESPIRATORY: Absent: cough, shortness of breath GASTROINTESTINAL: Absent: abdominal pain, abdominal distension, melena, HEMATOLOGIC/IMMUNOLOGIC: Absent: history of clotting disorder PHYSICAL EXAM: GENERAL: Awake, alert, and fully oriented, in no acute distress. LOWER EXTREMITIES: 2+ pulses, warm, well-perfused. RLE calf is tight and tender to touch/swelling. Varicosities to the RLE. LLE without varicosities or swelling. NEUROLOGICAL: Normal speech, gait not observed. Vital Signs Temperature 97.8 F 06/08/18 12:11 Pulse Rate 79 06/08/18 12:11 Respiratory Rate 15 06/08/18 12:11 Blood Pressure 136/100 06/08/18 12:11 O2 Sat by Pulse Oximetry (%) 97 06/08/18 10:31 Lab Results WBC 6.7 K/mm3 (4.0-10.0) 06/08/18 02:59 RBC 4.25 M/mm3 (4.00-5.60) 06/08/18 02:59 Hgb 15.3 GM/dL (11.7-16.9) 06/08/18 02:59 Hct 43.1 % (35.4-49) 06/08/18 02:59 MCV 101.3 fl (80-96) H 06/08/18 02:59 MCHC 35.4 g/dl (32.0-35.9) 06/08/18 02:59 RDW 13.1 % (11.9-15.9) 06/08/18 02:59 Plt Count 250 K/MM3 (134-434) 06/08/18 02:59 Sodium 138 mmol/L (136-145) 06/08/18 05:30 Potassium 3.3 mmol/L (3.5-5.1) L 06/08/18 05:30 Chloride 101 mmol/L (98-107) 06/08/18 05:30 Carbon Dioxide 27 mmol/L (21-32) 06/08/18 05:30 Anion Gap 10 MMOL/L (8-16) 06/08/18 05:30 BUN 12 mg/dL (7-18) 06/08/18 05:30 Creatinine 0.9 mg/dL (0.55-1.3) 06/08/18 05:30 Random Glucose 182 mg/dL (74-106) H 06/08/18 05:30 Calcium 8.0 mg/dL (8.5-10.1) L 06/08/18 05:30 INR 1.37 (0.83-1.09) H 06/08/18 02:59 Duplex: RLE non-compressible clot in the popliteal, posterior tibial vein. Problem List - Problems (1) DVT of lower extremity (deep venous thrombosis) Assessment/Plan: Pt with recurrent RLE DVT while on xarelto Discussed with Dr. Monge the patient care plan. Recommend to continue anticoagulation, pt being treated with IV heparin. Will await consultation from hematology. Pt may need placement of IVC filter since recurrent DVT while on anitcoagulation. Code(s): I82.409 - ACUTE EMBOLISM AND THOMBOS UNSP DEEP VN UNSP LOWER EXTREMITY Qualifiers: Affected thrombotic vein of extremity: popliteal Chronicity: acute Laterality: right Qualified Code(s): I82.431 - Acute embolism and thrombosis of right popliteal vein
[2018-06-08] MEDS ORDERED: chlordiazePOXIDE HCL 25 MG CAPSULE PO PRN (22:09)
--- NOTE | 2018-06-08 22:36 | PN ---
Teaching Attending Note Name of Resident: Oscar Zuñiga ATTENDING PHYSICIAN STATEMENT I saw and evaluated the patient. I reviewed the resident's note and discussed the case with the resident. I agree with the resident's findings and plan as documented. ASSESSMENT AND PLAN: 52 yo M h/o HIV on HAART, HTN, DVT and PE admitted to the hospital for finding of recurrent DVT. Rt. popliteal and posterior tibial DVT Past h/o multiple unorovoked RT. LE DVt/PE since 2011. Last episode 2014 Reports failing coumadin Most recently on Xeralto for > 1yr. Reports good compliance wiht xeralto Had been on lovenox in past reports RLE pain and duplex shows popliteal and post. tibial DVT Will recommend thrombophilia w/u. aunt of PE per patient - recommend lovenox for AC -will need occult malignancy w/u -- CT scans
[2018-06-08] MEDS: chlordiazePOXIDE HCL 25 MG CAPSULE PO SCH (23:58)
[2018-06-09] MEDS ORDERED: PNEUMOC 13-VAL CONJ-DIP CRM/PF 0.5 ML DISP.SYRIN IM ONE (00:40)
[2018-06-09 00:56] VITALS: BMI 31.0
[2018-06-09] MEDS: HEPARIN - 25,000 UNIT in SODIUM CHLORIDE 495 ML IV SCH (02:42)
[2018-06-09] MEDS: chlordiazePOXIDE HCL 25 MG CAPSULE PO SCH ×2 (05:52→11:01)
[2018-06-09] MEDS ORDERED: PNEUMOCOCCAL 23 VACCINE 0.5 ML VIAL IM ONE (10:00)
[2018-06-09] MEDS ORDERED: FLU VACCINE QUAD 60 MCG/0.5 ML (MDV 18-19) IM ONE (10:00)
[2018-06-09] MEDS ORDERED: PT OWN MED DRAWER 7, Y5N ONE ×2 (10:25→18:40)
[2018-06-09] MEDS: ABACAVIR SULFATE 300 MG TABLET PO SCH (10:46)
[2018-06-09] MEDS: DOLUTEGRAVIR SODIUM 50 MG TABLET (NON-FORMULARY) PO SCH (10:46)
[2018-06-09] MEDS: lamiVUDine 150 MG TABLET PO SCH (10:46)
[2018-06-09] MEDS: amLODIPine BESYLATE 10 MG TABLET (FP) PO SCH (10:46)
[2018-06-09] MEDS ORDERED: ENOXAPARIN NA (PORCINE) 100 MG/1 ML DISP.SYRIN SQ SCH (11:30)
--- NOTE | 2018-06-09 11:31 | PN ---
Physical Exam: SUBJECTIVE: Patient seen and examined,denies any pain at this time. states that the edema has improved, he is familiar with lovenox injection OBJECTIVE: Vital Signs Period Temp Pulse Resp BP Sys/Mccray Pulse Ox Last 24 Hr 97.6 F-98.3 F 70-79 15-20 114-153/72-100 97-98 GENERAL: The patient is awake, alert, and fully oriented, in no acute distress. HEAD: Normal with no signs of trauma. EYES: PERRL, extraocular movements intact, sclera anicteric, conjunctiva clear. No ptosis. ENT: Ears normal, nares patent, oropharynx clear without exudates, moist mucous membranes. NECK: Trachea midline, full range of motion, supple. LUNGS: Breath sounds equal, clear to auscultation bilaterally, no wheezes, no crackles, no accessory muscle use. HEART: Regular rate and rhythm, S1, S2 without murmur, rub or gallop. ABDOMEN: Soft, nontender, nondistended, normoactive bowel sounds, no guarding, no rebound, no hepatosplenomegaly, no masses. EXTREMITIES: 2+ pulses, warm, well-perfused, R leg 2+ pitting edema, which he states is improving NEUROLOGICAL: Cranial nerves II through XII grossly intact. Normal speech, gait not observed. PSYCH: Normal mood, normal affect. SKIN: Warm, dry, normal turgor, no rashes or lesions noted Laboratory Results - last 24 hr 06/08/18 06/09/18 20:59 06:30 PTT (Actin FS) 46.4 H 49.5 H Active Medications Generic Name Dose Route Start Last Admin Trade Name Freq PRN Reason Stop Dose Admin Abacavir Sulfate 600 mg 06/08/18 10:00 06/09/18 10:46 Ziagen - PO 600 mg DAILY JORGE Administration Amlodipine Besylate 10 mg 06/08/18 10:00 06/09/18 10:46 Norvasc - PO 10 mg DAILY JORGE Administration Chlordiazepoxide HCl 25 mg 06/08/18 22:09 06/08/18 22:25 Librium - PO 06/11/18 22:08 25 mg Q4H PRN Administration WITHDRAWAL(CONT SUBST) Chlordiazepoxide HCl 10 mg 06/11/18 23:00 Librium - PO 06/12/18 17:01 [id number] JORGE Enoxaparin Sodium 100 mg 06/09/18 11:30 Lovenox - SQ DAILY JORGE Lamivudine 300 mg 06/09/18 10:00 06/09/18 10:46 Epivir - PO 300 mg DAILY JORGE Administration ASSESSMENT/PLAN: DVT: Recurrent: evaluated by hematology and plan is for lovenox instead of heparin which patient has to be DCed on , as well as W/U and F/U as 0/p. Etoh abuse: he has not required librium here and has no withdrawal symptoms at this time. will give him thiamin, folic acid, MVI HIV: Will c/w home medication HTN: c/w HOME MEDICATION He will most likely need to be on asa, STATIN on DC Pain management: pain has improved and denies need for any pain medication at this time pending final vascular recs. dispo: home today or tomorrow pending final recs by vascular Diet: regular Visit type - Emergency Visit Emergency Visit: No - New Patient This patient is new to me today: No - Critical Care Critical Care patient: No - Discharge Referral Referred to [facility] No
[2018-06-09] MEDS: MULTIVITAMINS (DAILY MVI) TABLET (FP) PO SCH (14:33)
[2018-06-09] MEDS: THIAMINE HCL 100 MG TABLET (FP) PO SCH (14:33)
[2018-06-09] MEDS: ENOXAPARIN NA (PORCINE) 120 MG/0.8 ML DISP.SYRIN SQ SCH (21:54)
[2018-06-09] MEDS ORDERED: chlordiazePOXIDE HCL 25 MG CAPSULE PO SCH (23:00)
[2018-06-10 09:03] LABS: HEMOGLOBIN 15.5 GM/dL (11.7-16.9); MCH 35.1 pg (25.7-33.7); MCHC 33.7 g/dl (32.0-35.9); MEAN CELL VOLUME 104.2 fl (80-96); MEAN PLT VOLUME 9.2 fl (7.5-11.1); PLATELET COUNT 207 K/MM3 (134-434); RBC 4.41 M/mm3 (4.00-5.60); RDW 12.8 % (11.9-15.9); WHITE BLOOD COUNT 5.9 K/mm3 (4.0-10.0)
--- NOTE | 2018-06-10 11:30 | HOSP ---
Subjective - Review of Symptoms Events since last encounter: he is comfortable no pain no swelling General: No: Chills, Night Sweats, Fatigue, Malaise, Appetite, Other HEENT: No: Head Aches, Visual Changes, Eye Pain, Ear Pain, Dysphasia, Sinus Congestion, Post Nasal Drip, Sore Throat, Other Pulmonary: No: Dyspnea, Cough, Pleuritic Chest Pain, Other Cardiovascular: No: Chest Pain, Palpitations, Orthopnea, Paroxysmal Noc. Dyspnea , Edema, Light Headedness, Other Gastrointestinal: No: Nausea, NOSYM, Vomiting, Abdominal Pain, Diarrhea, Constipation, Melena, Hematochezia, Other Genitourinary: No: Dysuria, NOSYM, Frequency, Incontinence, Hematuria, Retention , Other Musculoskeletal: No: No Symptoms, Back Pain, Crepitus, Decreased ROM, Extremity Pain, Joint Pain, Joint Swelling, Muscle Pain, Muscle Cramps, Muscle Weakness, Other Neurological: No: Weakness, Numbness, Incoordination, Change in speech, Confusion, Seizures, Other Physical Examination Vital Signs: Vital Signs Temperature 97.5 F L 06/10/18 07:15 Pulse Rate 75 06/09/18 15:51 Respiratory Rate 18 06/10/18 07:15 Blood Pressure 118/58 L 06/10/18 07:15 O2 Sat by Pulse Oximetry (%) 100 06/09/18 21:00 Constitutional: Yes: Well Nourished Eyes: Yes: WNL HENT: Yes: WNL Neck: Yes: WNL Cardiovascular: Yes: WNL, Regular Rate and Rhythm Respiratory: Yes: Regular, CTA Bilaterally Gastrointestinal: Yes: WNL, Normal Bowel Sounds Edema: No Labs: CBC, BMP 06/10/18 07:30 06/08/18 05:30 Hospitalist Encounter Assessment: DVT: Recurrent: evaluated by hematology and plan is for lovenox Etoh abuse: he has not required librium here and has no withdrawal symptoms at this time. will give him thiamin, folic acid, MVI HIV: Will c/w home medication HTN: c/w HOME MEDICATION d/w patient about the injcetions and he is going to learn today and if stable and will d/c him am home with f/u for his dvt with his pmd
[2018-06-10] MEDS ORDERED: PT OWN MED DRAWER 7, Y5N ONE (11:59)
[2018-06-10] MEDS: ENOXAPARIN NA (PORCINE) 120 MG/0.8 ML DISP.SYRIN SQ SCH ×2 (12:04→21:28)
[2018-06-10] MEDS: lamiVUDine 150 MG TABLET PO SCH (12:05)
[2018-06-10] MEDS: DOLUTEGRAVIR SODIUM 50 MG TABLET (NON-FORMULARY) PO SCH (12:05)
[2018-06-10] MEDS: ABACAVIR SULFATE 300 MG TABLET PO SCH (12:05)
[2018-06-10] MEDS: amLODIPine BESYLATE 10 MG TABLET (FP) PO SCH (12:06)
[2018-06-10] MEDS: MULTIVITAMINS (DAILY MVI) TABLET (FP) PO SCH (12:06)
[2018-06-10] MEDS: THIAMINE HCL 100 MG TABLET (FP) PO SCH (12:06)
[2018-06-10 15:15] LABS: DRVVT - 32.7 sec (0.0-47.0)
[2018-06-10 18:11] LABS: HOMOCYSTINE-PLASMA OR SERUM 7.8 umol/L (0.0-15.0)
[2018-06-10] MEDS ORDERED: chlordiazePOXIDE 5 MG CAPSULE PO SCH (23:00)
[2018-06-11 07:07] LABS: HEMATOCRIT 42.7 % (35.4-49); HEMOGLOBIN 14.6 GM/dL (11.7-16.9); MCH 35.4 pg (25.7-33.7); MCHC 34.2 g/dl (32.0-35.9); MEAN CELL VOLUME 103.5 fl (80-96); MEAN PLT VOLUME 8.8 fl (7.5-11.1); PLATELET COUNT 189 K/MM3 (134-434); RBC 4.12 M/mm3 (4.00-5.60); RDW 13.2 % (11.9-15.9); WHITE BLOOD COUNT 4.9 K/mm3 (4.0-10.0)
[2018-06-11] MEDS ORDERED: PT OWN MED DRAWER 7, Y5N ONE (10:40)
[2018-06-11 10:45] VITALS: BP 124/88; PULSE 92; TEMP 98
[2018-06-11] MEDS: amLODIPine BESYLATE 10 MG TABLET (FP) PO SCH (10:45)
[2018-06-11] MEDS: MULTIVITAMINS (DAILY MVI) TABLET (FP) PO SCH (10:45)
[2018-06-11] MEDS: THIAMINE HCL 100 MG TABLET (FP) PO SCH (10:46)
[2018-06-11] MEDS: DOLUTEGRAVIR SODIUM 50 MG TABLET (NON-FORMULARY) PO SCH (10:46)
[2018-06-11] MEDS: ABACAVIR SULFATE 300 MG TABLET PO SCH (10:47)
[2018-06-11] MEDS: ENOXAPARIN NA (PORCINE) 120 MG/0.8 ML DISP.SYRIN SQ SCH (10:48)
[2018-06-11] MEDS: lamiVUDine 150 MG TABLET PO SCH (10:53)
--- NOTE | 2018-06-11 11:04 | DS ---
Physical Exam: SUBJECTIVE: Patient seen and examined OBJECTIVE: He was admitted to hospital with recurrent dvt on comliant dose xarelto and see by hematology and recommended to use lovanox as anti coagulant. Vital Signs Period Temp Pulse Resp BP Sys/Mccray Pulse Ox Last 24 Hr 98 F-98.6 F 75-92 18-20 102-131/47-88 100 PHYSICAL EXAM GENERAL: The patient is awake, alert, and fully oriented, in no acute distress. HEAD: Normal with no signs of trauma. EYES: PERRL, extraocular movements intact, sclera anicteric, conjunctiva clear. ENT: Ears normal, nares patent, oropharynx clear without exudates, moist mucous membranes. NECK: Trachea midline, full range of motion, supple. LUNGS: Breath sounds equal, clear to auscultation bilaterally, no wheezes, no crackles, no accessory muscle use. HEART: Regular rate and rhythm, S1, S2 without murmur, rub or gallop. ABDOMEN: Soft, nontender, nondistended, normoactive bowel sounds, no guarding, no rebound, no hepatosplenomegaly, no masses. EXTREMITIES: 2+ pulses, warm, well-perfused, no edema. NEUROLOGICAL: Cranial nerves II through XII grossly intact. Normal speech, gait not observed. PSYCH: Normal mood, normal affect. SKIN: Warm, dry, normal turgor, no rashes or lesions noted. LABS Laboratory Results - last 24 hr 06/09/18 06/11/18 06/11/18 06:30 06:25 06:25 WBC 4.9 RBC 4.12 Hgb 14.6 Hct 42.7 MCV 103.5 H MCH 35.4 H MCHC 34.2 RDW 13.2 Plt Count 189 MPV 8.8 PTT (Actin FS) 32.5 LA PTT Baseline 49.5 dRVVT Confirm Interp 32.7 Lupus Anticoag Comment Comment: Homocysteine 7.8 CK Screen Negative HOSPITAL COURSE: Date of Admission:06/08/18 Date of Discharge: 06/11/18 52 yo M h/o HIV on HAART, HTN, DVT and PE admitted to the hospital for finding of recurrent DVT. Rt. popliteal and posterior tibial DVT Past h/o multiple unorovoked RT. LE DVt/PE since 2011. Last episode 2014 Reports failing coumadin Most recently on Xeralto for > 1yr. Reports good compliance wiht xeralto Had been on lovenox in past reports RLE pain and duplex shows popliteal and post. tibial DVT - recommend lovenox for AC Current Medications Abacavir Sulfate (Ziagen -) 600 mg PO DAILY [facility] Last Admin: 06/11/18 10:47 Dose: 600 mg Amlodipine Besylate (Norvasc -) 10 mg PO DAILY [facility] Last Admin: 06/11/18 10:45 Dose: 10 mg Chlordiazepoxide HCl (Librium -) 25 mg PO Q4H PRN PRN Reason: WITHDRAWAL(CONT SUBST) Stop: 06/11/18 22:08 Last Admin: 06/08/18 22:25 Dose: 25 mg Chlordiazepoxide HCl (Librium -) 10 mg PO [id number]-[id number] [facility] Stop: 06/12/18 17:01 Enoxaparin Sodium (Lovenox -) 105 mg SQ BID [facility] Last Admin: 06/11/18 10:48 Dose: 105 mg Lamivudine (Epivir -) 300 mg PO DAILY [facility] Last Admin: 06/11/18 10:53 Dose: 300 mg Multivitamins/Minerals/Vitamin C (Tab-A-Vit -) 1 tab PO DAILY [facility] Last Admin: 06/11/18 10:45 Dose: 1 tab Thiamine HCl (Vitamin B1 -) 100 mg PO DAILY [facility] Last Admin: 06/11/18 10:46 Dose: 100 mg Minutes to complete discharge: 30 Discharge Summary Reason For Visit: ALCOHOL DEPENDENCE WITH UNCOMPLICATED Current Active Problems DVT of lower extremity (deep venous thrombosis) (Acute) Condition: Fair - Instructions Diet, Activity, Other Instructions: regaular diet Referrals: Hamida Vargas DO [Primary Care Provider] - Disposition: HOME - Home Medications Comprehensive Discharge Medication List: Ambulatory Orders Abacavir/Dolutegravir/Lamivudi [Triumeq 600-50-300 mg Tablet] 1 each PO DAILY Amlodipine Besylate [Norvasc -] 10 mg PO DAILY 06/07/18 Vitamin B Complex [B Complex] 1 each PO DAILY 06/07/18 Enoxaparin [Lovenox -] 105 mg SQ BID 30 Days #60 disp.syrin 06/11/18 Multivitamins [Multivit ([facility] Formulary)] 1 tab PO DAILY #30 tab 06/11/18 Thiamine HCl [Vitamin B1 -] 100 mg PO DAILY #30 tablet 06/11/18 - Discharge Referral [facility]erred to [facility] No
[2018-06-11] MEDS ORDERED: chlordiazePOXIDE 5 MG CAPSULE PO SCH (23:00)
== END 2018-06-11 13:23 | disposition home or self-care (01) | DRG 197 ==
LOC: JER 23:42 → JERBED 06-08 03:23 → OBSVTOIN 06-08 04:02 → J5S 06-08 23:15
PROVIDERS: ADMIT Internal Medicine; ATTEND Internal Medicine
PROC: HZ2ZZZZ Detoxification Services for Substance Abuse Treatment (ICD-10-PCS; principal; 2018-06-08)
DX: I82.431 Acute embolism and thrombosis of right popliteal vein (principal); I82.441 Acute embolism and thrombosis of right tibial vein; Z21 Asymptomatic human immunodeficiency virus [HIV] infection status; I10 Essential (primary) hypertension; F10.230 Alcohol dependence with withdrawal, uncomplicated; Z86.711 Personal history of pulmonary embolism; F17.210 Nicotine dependence, cigarettes, uncomplicated; Z79.01 Long term (current) use of anticoagulants
CPT/HCPCS: 36415; 71046-TC-FY; 80053; 81240; 81291; 82272; 83090; 83735; 84100; 85025; 85027; 85610; 85613; 85730; 85732; 86038; 90688; 90732; 93005; 93010; 93971-TC; 99284-25; G0008; G0009; G0378; J1644